=== PATIENT | female | born 1945 | race Hispanic/Latino ===

== ENCOUNTER 2017-05-06 16:44 | Inpatient (IN) | payer MEDICARE ==
[2017-05-06 17:11] LABS: #Lymphocytes 1.3 thou/uL (1.20-3.40); #Monocytes 0.4 thou/uL (0.11-0.59); #Neutrophils 6.7 thou/uL (1.40-6.50); %Basophils 0.4 % (0.0-1.0); %Eosinophils 0.4 % (0.0-10.0); %Lymphocytes 15.5 % (21.0-51.0); %Monocytes 4.4 % (0.0-10.0); Hematocrit 42.8 % (36.0-47.0); Mean Platelet Volume 9.6 fL (7.4-10.4); Red Blood Cell (RBC) Count 4.42 mill/uL (4.20-5.40); White Blood Cell (WBC) Count 8.4 thou/uL (4.8-10.8)
[2017-05-06 17:32] LABS: ALT (SGPT) 38 U/L (8-55); AST (SGOT) 59 U/L (5-34); Alkaline Phosphatase 152 U/L (40-150); Anion Gap 15 mmol/L (10-20); BUN (Urea Nitrogen) 15 mg/dL (9.8-20.1); Bilirubin, Total 0.7 mg/dL (0.2-1.2); Calc. Creatinine Clearance 0 mL/min (70-130); Calcium 9.7 mg/dL (7.8-10.44); Carbon Dioxide 23 mmol/L (23-31); Chloride 105 mmol/L (98-107); Estimated GFR-MDRD 73; Globulin 3.4 g/dL (2.4-3.5); Lipase 311 U/L (8-78); Protein, Total 7.7 g/dL (6.0-8.3)
[2017-05-06] MEDS ORDERED: Ondansetron HCl/PF 4 MG/2 ML Vial ONE (17:39)
[2017-05-06 17:40] LABS: Troponin I Less than 0.010 ng/mL (< 0.028)
[2017-05-06 18:41] LABS: Bilirubin Negative (Negative); Blood, Urine Negative (Negative); Glucose, Urine (Dipstick) Negative (Negative); Ketone, Urine 40 mg/dL (Negative); Nitrite Negative (Negative); Protein, Urine (Dipstick) Negative (Neg-Trace)
--- NOTE | 2017-05-06 19:15 | ULT ---
EXAM: GALLBLADDER ULTRASOUND 05/06/17 HISTORY: Nausea, vomiting. Elevated LFTs. COMPARISON: None. TECHNIQUE: Utilizing a multihertz transducer, sonographic imaging of the right upper quadrant is performed in t he longitudinal and transverse plane. FINDINGS: There is heterogeneous echotexture of the liver which may be due to hepatic steatosis or hepatocellu lar disease. Subsequent evaluation for hepatic masses and intrahepatic biliary dilatation is limited . Right hepatic lobe measures 12 cm. Pancreas is poorly defined due to bowel gas. Limited evaluation of the IVC and aorta. Main portal ve in is patent. Appropriate directional flow. Common bile duct is prominent measuring 1.3 cm. No sonographic evidence of cholelithiasis, gallbladder wall thickening, or pericholecystic fluid. Qu estionable sludge. Negative Howe's sign. Right kidney has a normal cortical echotexture. No hydronephrosis. Right kidney measures 4.8 x 9.7 x 5.1 cm. IMPRESSION: 1. Heterogeneous echotexture of the liver. Correlate for hepatic steatosis or hepatocellular di sease. 2. No sonographic evidence of cholecystitis. There may be a small amount of sludge within the l umen of the gallbladder. 3. Markedly distended common bile duct. Possibly due to choledocholithiasis is raised. ERCP is recommended. POS: HEIDI
[2017-05-06] MEDS ORDERED: Acetaminophen 650 MG Suppository PR PRN (20:03)
[2017-05-06] MEDS ORDERED: Acetaminophen 325 MG TAB PO PRN (20:03)
[2017-05-06] MEDS ORDERED: Bisacodyl 5 MG TAB PO PRN (20:03)
[2017-05-06] MEDS ORDERED: Ampicillin/Sulbactam 3 GM in Sodium Chloride 0.9% 100 ML IVPB SCH (20:15)
[2017-05-06] MEDS ORDERED: HumaLOG 300 UNITS/3 ML VIAL SC PRN (20:16)
[2017-05-06] MEDS ORDERED: Dextrose 5% in Water 1,000 ML IV PRN (20:16)
[2017-05-06] MEDS ORDERED: Dextrose 50% Abboject 50 ML SYRINGE SLOW IVP PRN (20:16)
[2017-05-06] MEDS: Ampicillin/Sulbactam 3 GM, Syringe 1.6 ML in Sterile Water 6.4 ML SLOW IVP SCH (20:45)
--- NOTE | 2017-05-06 20:49 | HP ---
PRIMARY CARE PHYSICIAN: Dr. Meggan Lopez. CHIEF COMPLAINT: Vomiting. HISTORY OF PRESENT ILLNESS: Ms. Montelongo is a pleasant 71-year-old lady who was seen at [facility] on 05/06/2017. She was doing well until yesterday. Yesterday, she had a dental procedure. She was started on an a ntibiotic as well as pain medication. She started taking those medications yesterday. Today mornin g, she started vomiting. She reports having nausea and vomiting 4 times. Nausea resolved after she came to the emergency room and received the medication. She denies any blood in the vomitus. She denies any abdominal pain. She denies any fevers or chills. She denies any chest pain or shortness of breath. REVIEW OF SYSTEMS: The following complete review of systems was negative, unless otherwise mentione d in the HPI or below: Constitutional: Weight loss or gain, sense of well-being, ability to conduct usual activities, exer cise tolerance. Skin/Breast: Rash, itching, changes in hair growth or loss, nail changes, breast lumps, tenderness, swelling, nipple discharge. Eyes: Vision, double vision, tearing, blind spots, pain. ENT/Mouth: Headaches (location, time of onset, duration, precipitating factors), vertigo, lighthead edness, injury. Vision, double vision, tearing, blind spots, pain, nose bleeding, colds, obstruction , discharge, dental difficulties, gingival bleeding, dentures, neck stiffness, pain, tenderness, mas ses in thyroid or other areas. Cardiovascular: Precordial pain, substernal distress, palpitations, syncope, dyspnea on exertion, o rthopnea, nocturnal paroxysmal dyspnea, edema, cyanosis, hypertension, heart murmurs, varicosities, phlebitis, claudication. Respiratory: Pain, shortness of breath, wheezing, stridor, cough, hemoptysis, fever or night sweats . Gastrointestinal: Poor appetite, dysphagia, indigestion, abdominal pain, heartburn, eructation, thu sea, vomiting, hematemesis, jaundice, constipation, or diarrhea, abnormal stools (tommy-colored, nicolle y, bloody, greasy, foul smelling), flatulence, hemorrhoids, recent changes in bowel habits. Genitourinary: Urgency, frequency, dysuria, nocturia, hematuria, polyuria, oliguria, unusual (or ch nasim in) color of urine, stones, hesitancy, change in size of stream, dribbling, acute retention or incontinence, libido, potency. Musculoskeletal: Pain, swelling, redness or heat of muscles or joints, limitation, of motion, muscu lar weakness, atrophy, cramps. Neurologic/Psychiatric: Convulsions, paralyses, tremor, incoordination, paresthesias, difficulties with memory of speech, sensory or motor disturbances, or muscular coordination (ataxia, tremor), emo tional problems, anxiety, depression, previous psychiatric care, unusual perceptions, hallucinations . Allergy/Immunologic: Skin rash, anemia, bleeding tendency, polydipsia, polyuria, intolerance to hea t or cold. PAST MEDICAL HISTORY: Significant for diabetes mellitus, dyslipidemia and hypertension. PAST SURGICAL HISTORY: Significant for oophorectomy, hysterectomy and brain aneurysm surgery. SOCIAL HISTORY: Patient denies tobacco use, alcohol use or recreational drug use. FAMILY HISTORY: No family history of premature coronary artery disease. ALLERGIES: PLAVIX, CODEINE, DILANTIN, GABAPENTIN and NEURONTIN. CURRENT MEDICATIONS: Include metformin 500 mg 2 times a day, Zocor 10 mg daily, acetaminophen/codei ne every 6 hours as needed, aspirin 81 mg daily, Beepen-VK 250 mg, frequency unknown. CODE STATUS: I discussed her CODE STATUS. She is FULL CODE. PHYSICAL EXAMINATION: GENERAL: Ms. Montelongo is awake and alert, not in acute distress. VITAL SIGNS: Blood pressure is 157/94, pulse is 85. She is breathing at rate of 18 and saturating 97% on room air. She is afebrile. EYES: No conjunctival pallor, no scleral icterus. ENT: Moist mucosal membranes. No oropharyngeal erythema or exudates. NECK: Supple, nontender, normal range of movement. Trachea is midline. RESPIRATORY: Accessory muscles of breathing are not active. Chest wall movements are symmetric carroll aterally. LUNGS: Clear to auscultation without wheeze, rhonchi or crepitations. CARDIOVASCULAR: Heart S1 and S2 are heard, regular. Peripheral pulses palpable. No carotid bruit, no pericardial rub. ABDOMEN: Soft and nontender. Howe sign negative. No hepatomegaly, no splenomegaly, bowel sounds are heard. NEUROLOGIC: Cranial nerves II-XII are intact. Deep tendon reflexes 2+. SKIN: No rashes or subcutaneous nodules. MUSCULOSKELETAL: Power is 5/5 in all 4 extremities. Normal range of movement at all major extremit y joints. SKIN: No rashes or subcutaneous nodules. LYMPHATIC: No cervical lymphadenopathy. PSYCHIATRIC: Normal mood, normal affect. Patient is oriented to person, place and time. DATABASE: Ms. Montelongo's labs and investigations were reviewed. She had an electrocardiogram, which showed normal sinus rhythm, no ST changes to suggest an acute coronary syndrome. She also had abdom inal ultrasound, which showed markedly distended common bile duct, possibly due to choledocholithias is. She had hydrogenous echotexture of the liver. There was no sonographic evidence of cholecystit is. She may have a small amount of sludge within the lumen of the gallbladder. LABORATORY INVESTIGATION: Show unremarkable CBC, normal electrolytes, normal creatinine, normal tot al bilirubin, elevated AST of 59, elevated alkaline phosphatase of 152, elevated lipase of 311 and n ormal troponin I. ALT is normal. Urinalysis shows ketones, but is otherwise unremarkable. ASSESSMENT AND PLAN: Ms. Montelongo is a pleasant 71-year-old lady who was seen at [facility] on 05/06/2017. Her problem list includes: 1. Nausea and vomiting: Most likely secondary to choledocholithiasis. 2. Choledocholithiasis: Suspected. Patient will be admitted to the hospital, kept n.p.o. after mi dnight. Gastroenterology Service will be consulted for possible endoscopic retrograde cholangiopanc reatography. 3. Diabetes mellitus: Start Accu-Cheks, insulin sliding scale. 4. Hypertension: Monitor vital signs, titrate antihypertensives as needed. 5. Dental infection. Since she had nausea and vomiting, we will switch her to intravenous antibiot ics in the form of Unasyn 3 grams IV q.6 hours. Once she is able to take oral medications and diet on a steady basis, switch her back to oral antibiotics. Many thanks for allowing me to participate in your patient's care. Please feel free to contact me w ith any questions or concerns. LEVEL OF RISK: Moderate. LEVEL OF COMPLEXITY: Moderate.
[2017-05-06 20:59] VITALS: BMI 33.8
[2017-05-06] MEDS: Sodium Chloride 0.9% 1,000 ML IV SCH (22:19)
[2017-05-07] MEDS: Ampicillin/Sulbactam 3 GM, Syringe 1.6 ML in Sterile Water 6.4 ML SLOW IVP SCH ×4 (02:43→21:35)
[2017-05-07 06:04] LABS: #Eosinphils 0.1 thou/uL (0.0-0.7); #Lymphocytes 1.6 thou/uL (1.20-3.40); #Monocytes 0.4 thou/uL (0.11-0.59); #Neutrophils 4.6 thou/uL (1.40-6.50); %Basophils 0.5 % (0.0-1.0); %Lymphocytes 23.7 % (21.0-51.0); %Monocytes 5.9 % (0.0-10.0); Hematocrit 36.5 % (36.0-47.0); Mean Platelet Volume 9.4 fL (7.4-10.4); Red Blood Cell (RBC) Count 3.76 mill/uL (4.20-5.40); White Blood Cell (WBC) Count 6.7 thou/uL (4.8-10.8)
[2017-05-07 06:36] LABS: ALT (SGPT) 25 U/L (8-55); AST (SGOT) 33 U/L (5-34); Alkaline Phosphatase 122 U/L (40-150); Anion Gap 14 mmol/L (10-20); BUN (Urea Nitrogen) 12 mg/dL (9.8-20.1); Bilirubin, Direct 0.3 mg/dL (0.1-0.3); Bilirubin, Total 0.6 mg/dL (0.2-1.2); Calc. Creatinine Clearance 102 mL/min (70-130); Calcium 8.7 mg/dL (7.8-10.44); Carbon Dioxide 20 mmol/L (23-31); Chloride 110 mmol/L (98-107); Estimated GFR-MDRD 87; Lipase 104 U/L (8-78); Protein, Total 6.3 g/dL (6.0-8.3)
[2017-05-07] MEDS ORDERED: Sodium Chloride 0.65% Nasal 44 ML BOT EA NARE PRN (09:02)
[2017-05-07] MEDS ORDERED: hydrALAZINE 20 MG/ML VIAL SLOW IVP PRN (09:02)
[2017-05-07] MEDS ORDERED: Loperamide HCl 2 MG CAP PO PRN (09:02)
[2017-05-07] MEDS ORDERED: Eucerin (Mineral Oil/Petrolatum,White) 30 gm Jar TOP PRN (09:02)
[2017-05-07] MEDS ORDERED: Diabetic Tussin 200 MG/10 ML UDCUP PO PRN (09:02)
[2017-05-07] MEDS ORDERED: Loratadine 10 MG TAB PO PRN (09:02)
[2017-05-07] MEDS ORDERED: Ondansetron ODT 4 MG TAB PO PRN (09:02)
[2017-05-07] MEDS ORDERED: Ondansetron HCl/PF 4 MG/2 ML Vial IVP PRN (09:02)
[2017-05-07] MEDS ORDERED: Zolpidem Tartrate 5 MG TAB PO PRN (09:02)
[2017-05-07] MEDS ORDERED: Milk Of Magnesia 30 ML UDCUP PO PRN (09:02)
[2017-05-07] MEDS ORDERED: Mag-Al 1200 mg/1200 mg/30 ML UDCUP PO PRN (09:02)
[2017-05-07] MEDS: Sodium Chloride 0.9% 1,000 ML IV SCH ×2 (12:11→15:34)
--- NOTE | 2017-05-07 12:50 | PDOC.PN ---
- Subjective Encounter Start Date: 05/07/17 Encounter Start Time: 08:50 -: old records requested/rev Patient seen and examined. No new complaints. No overnight events, no ruq pain - Objective Resuscitation Status: Resuscitation Status FULL:Full Resuscitation MAR Reviewed: Yes Vital Signs & Weight: Vital Signs (12 hours) Temp Pulse Resp BP BP Pulse Ox 05/07/17 11:16 98.3 F 73 18 126/63 94 L 05/07/17 08:00 98.7 F 72 18 98 05/07/17 07:43 98.7 F 72 18 113/69 98 05/07/17 04:00 98.6 F 73 16 110/52 L 97 Weight Weight 185 lb Result Diagrams: 05/07/17 05:07 05/07/17 05:07 Additional Labs: Accuchecks 05/07/17 05/07/17 11:16 04:58 POC Glucose 96 92 Radiology Reviewed by me: Yes (us abdomen) Phys Exam - Physical Examination Constitutional: NAD HEENT: PERRLA, moist MMs, sclera anicteric Neck: no JVD, supple Respiratory: no wheezing, no rales, no rhonchi Cardiovascular: RRR, no significant murmur, no rub Gastrointestinal: soft, non-tender, no distention, positive bowel sounds Musculoskeletal: no edema, pulses present Neurological: non-focal, normal sensation, moves all 4 limbs Psychiatric: normal affect, A&O x 3 Skin: no rash, normal turgor Dx/Plan (1) Abnormal LFTs Code(s): R79.89 - OTHER SPECIFIED ABNORMAL FINDINGS OF BLOOD CHEMISTRY Status : Acute (2) Dental infection Code(s): K04.7 - PERIAPICAL ABSCESS WITHOUT SINUS Status: Acute (3) Dilated bile duct Code(s): K83.8 - OTHER SPECIFIED DISEASES OF BILIARY TRACT Status: Acute (4) Nausea & vomiting Code(s): R11.2 - NAUSEA WITH VOMITING, UNSPECIFIED Status: Resolved (5) Diabetes type 2, controlled Code(s): E11.9 - TYPE 2 DIABETES MELLITUS WITHOUT COMPLICATIONS Status: Chronic (6) Dyslipidemia Code(s): E78.5 - HYPERLIPIDEMIA, UNSPECIFIED Status: Chronic (7) Hypertension Code(s): I10 - ESSENTIAL (PRIMARY) HYPERTENSION Status: Chronic (8) Obesity (BMI 30.0-34.9) Code(s): E66.9 - OBESITY, UNSPECIFIED Status: Chronic (9) Choledocholithiasis Code(s): K80.50 - CALCULUS OF BILE DUCT W/O CHOLANGITIS OR CHOLECYST W/O OBST Status: Suspected - Plan cont current plan of care, plan discussed w/ family, continue antibiotics * continue unasyn * GI consulted * may need MRCP or ERCP * medication reviewed as below * symptomatic treatment * discussed with family * continue IVF * repeat labs tomorrow. * selected home medication reconciled Review of Systems - Review of Systems ENT: negative: Ear Pain, Ear Discharge, Nose Pain, Nose Discharge, Nose Congestion, Mouth Pain, Mouth Swelling, Throat Pain, Throat Swelling, Other Respiratory: negative: Cough, Dry, Shortness of Breath, Hemoptysis, SOB with Excertion, Pleuritic Pain, Sputum, Wheezing Cardiovascular: negative: Chest Pain, Palpitations, Orthopnea, Paroxysmal Noc. Dyspnea, Edema, Light Headedness, Other Gastrointestinal: negative: Nausea, Vomiting, Abdominal Pain, Diarrhea, Constipation, Melena, Hematochezia, Other Genitourinary: negative: Dysuria, Frequency, Incontinence, Hematuria, Retention , Other Musculoskeletal: negative: Neck Pain, Shoulder Pain, Arm Pain, Back Pain, Hand Pain, Leg Pain, Foot Pain, Other Skin: negative: Rash, Lesions, Aries, Bruising, Other - Medications/Allergies Allergies/Adverse Reactions: Allergies Allergy/AdvReac Type Severity Reaction Status Date / Time clopidogrel [From Plavix] Allergy Verified 05/06/17 20:00 codeine Allergy Verified 05/06/17 20:00 gabapentin [From Neurontin] Allergy Verified 05/06/17 20:00 phenytoin [From Dilantin] Allergy Verified 05/06/17 20:00 Medications: Current Medications Acetaminophen (Tylenol) 650 mg PO Q4H PRN PRN Reason: Headache/Fever or Pain Al Hydroxide/Mg Hydroxide (Maalox) 15 ml PO Q4H PRN PRN Reason: Heartburn or Indigestion Atorvastatin Calcium (Lipitor) 20 mg PO HS BRITTA Bisacodyl (Dulcolax) 10 mg PO DAILYPRN PRN PRN Reason: Constipation Dextrose/Water (Dextrose 50%) 25 gm SLOW IVP PRN PRN PRN Reason: Hypoglycemia Famotidine (Pepcid) 20 mg SLOW IVP Q12HR BRITTA Glucagon (Glucagon) 1 mg IM PRN PRN PRN Reason: Hypoglycemia Guaifenesin (Robitussin Sf) 200 mg PO Q4H PRN PRN Reason: Cough Hydralazine HCl (Apresoline) 10 mg SLOW IVP Q4H PRN PRN Reason: Systolic BP > 180 Dextrose/Water (D5w) 1,000 mls @ 0 mls/hr IV .Q0M PRN; As Directed PRN Reason: Hypoglycemia Sodium Chloride (Normal Saline 0.9%) 1,000 mls @ 70 mls/hr IV .[id number] [facility] Last Admin: 05/07/17 12:11 Dose: Not Given Ampicillin Sodium/Sulbactam Sodium 3 gm/ Syringe 1.6 ml/Sterile Water 8 mls @ 32 mls/hr SLOW IVP 0300,0900,1500,2100 [facility] Last Admin: 05/07/17 09:39 Dose: 8 mls Insulin Human Lispro (Humalog) 0 units SC .MILD SLIDING SCALE PRN PRN Reason: Mild Correctional Scale Loperamide HCl (Imodium) 2 mg PO PRN PRN PRN Reason: Diarrhea/Loose Stools Loratadine (Claritin) 10 mg PO DAILYPRN PRN PRN Reason: Sinus Symptoms Magnesium Hydroxide (Milk Of Magnesium) 30 ml PO DAILYPRN PRN PRN Reason: Constipation Metformin HCl (Glucophage) 500 mg PO QPM-WM [facility] Mineral Oil/White Petrolatum (Eucerin Cream) 0 gm TOP BIDPRN PRN PRN Reason: Dry Skin Ondansetron HCl (Zofran Odt) 4 mg PO Q6H PRN PRN Reason: Nausea/Vomiting Ondansetron HCl (Zofran) 4 mg IVP Q6H PRN PRN Reason: Nausea/Vomiting Sodium Chloride ([place] Nasal [place] 0.65%) 0 ml EA NARE QIDPRN PRN PRN Reason: Nasal Congestion Zolpidem Tartrate (Ambien) 5 mg PO HSPRN PRN PRN Reason: Insomnia
[2017-05-07] MEDS: Dextrose 5 % And 0.9 % NaCl 1,000 ML IV SCH (17:10)
[2017-05-07] MEDS: metFORMIN 500 MG TAB PO SCH (17:10)
[2017-05-07] MEDS: Atorvastatin Calcium 20 MG TAB PO SCH (21:14)
[2017-05-07] MEDS: Famotidine/PF 20 mg/2ml Vial SLOW IVP SCH (21:15)
--- NOTE | 2017-05-07 23:14 | CON ---
DATE OF CONSULTATION: 05/07/2017 REASON FOR CONSULTATION: Questionable choledocholithiasis. HISTORY OF PRESENT ILLNESS: Ms. Montelongo is a pleasant 71-year-old female who came into the hospital yesterday because of refractory nausea and vomiting. Apparently, she has not had any stomach proble ms and had been in good health until she went to the dentist on Monday for a tooth that was botherin g her. After her procedure there, she was started on penicillin as well as a pain medicine with stephen jimenez. She started taking that medication on Monday evening and slept for most of the night but woke up on Monday with vomiting. She was really not waking up very well for the day and vomited about 4 or 5 times. Ultimately by about 5 in the evening, she was brought to the emergency room per katie hickey. She denies any abdominal pain. She denies any hematemesis. Her only discomfort was associated with the vomitus which was bright green in color. She had no fever or chills. No sick contacts an d she has not had any bouts like this in the past. She specifically denies any alcohol use. She denies any history of intermittent abdominal pain afte r meals. She denies weight loss, dysphagia, odynophagia, melena, hematochezia, or hematemesis. Her e in the emergency room, she had a very mild elevation of lipase and mild LFT elevation and then she had an ultrasound, the report of which is somewhat confusing. There is some heterogeneous echotexture which may be due to hepatic steatosis. The pancreas was poo rly defined. The common bile duct was prominent at 1.3 cm. There is no cholelithiasis, gallbladder wall thickening, pericholecystic fluid, or gallbladder dilatation. The radiologist stated that the re was marked distention of the common bile duct, possibly due to choledocholithiasis and an ERCP wa s recommended. The patient notes that shortly after coming to the emergency room, she felt better. She has had no further pain, no vomiting. She wants to eat and go home. She did not have any history of pancreati tis in the past. PAST MEDICAL HISTORY: Diabetes, dyslipidemia, hypertension. PAST SURGICAL HISTORY: Oophorectomy, bilateral hysterectomy, surgery, and some orthopedic stephon rolan. SOCIAL HISTORY: Negative for alcohol, drugs, or tobacco. FAMILY HISTORY: Negative for history of GI tract malignancy. ALLERGIES: PLAVIX, CODEINE, DILANTIN, GABAPENTIN, NEURONTIN. HOME MEDICATIONS: Metformin, Zocor, Tylenol with Codeine, and penicillin VK. PRESENT MEDICATIONS: Here, Tylenol p.r.n., Maalox p.r.n., atorvastatin, bisacodyl, Pepcid, Apresoli ne, Humalog, Imodium, Milk of Magnesia, normal saline at 70 an hour. PHYSICAL EXAMINATION: GENERAL: The patient is resting comfortably in bed. She is in no distress. She is tolerating [place] rs. Her daughter is at the bedside translating for her. VITAL SIGNS: Temperature is 98.3, she has been afebrile overnight, pulse is 73, her heart rate has been in the 70s overnight, blood pressure 126/63. LUNGS: Clear. HEART: Regular rhythm. ABDOMEN: Soft and nontender without rebound or guarding. There is no palpable hepatosplenomegaly. Bowel sounds are positive. LABORATORY AND X-RAY FINDINGS: White count 6.7, hemoglobin 12, platelet count 145. Sodium 140, pot assium 3.8, BUN and creatinine are 12 and 0.6, bicarbonate 20, anion gap is 10. Liver function test s were normal. Lipase is 104. On admission, her AST is 59, ALT is 38, alkaline phosphatase 152, gl ucose 139, lipase is 311. ASSESSMENT: 1. This is a patient who took some Tylenol and hydrocodone and then began having vomiting. She has had a history of allergies to codeine in the past, although she does not recall if they were. She is better now. This was likely a reaction to codeine. 2. Mild elevation of lipase and LFTs on admission, which has now resolved. She had an ultrasound t hat showed questionable common bile duct dilatation, although no stones in the gallbladder. It is p ossible that she had choledocholithiasis and may have passed a stone, but situationally, this seems to be a codeine reaction. RECOMMENDATIONS: MRCP. If this is normal, she can eat and go home. If it is not normal, she is go ing to have an ERCP tomorrow.
[2017-05-08] MEDS: Dextrose 5 % And 0.9 % NaCl 1,000 ML IV SCH ×3 (02:57→23:30)
[2017-05-08] MEDS: Ampicillin/Sulbactam 3 GM, Syringe 1.6 ML in Sterile Water 6.4 ML SLOW IVP SCH ×5 (02:58→22:52)
[2017-05-08 05:07] LABS: #Basophils 0.1 thou/uL (0.0-0.2); #Eosinphils 0.2 thou/uL (0.0-0.7); #Lymphocytes 1.7 thou/uL (1.20-3.40); #Monocytes 0.5 thou/uL (0.11-0.59); #Neutrophils 2.5 thou/uL (1.40-6.50); %Basophils 1.4 % (0.0-1.0); %Eosinophils 3.6 % (0.0-10.0); %Lymphocytes 34.6 % (21.0-51.0); %Monocytes 9.4 % (0.0-10.0); Red Blood Cell (RBC) Count 3.74 mill/uL (4.20-5.40); White Blood Cell (WBC) Count 4.9 thou/uL (4.8-10.8)
[2017-05-08 05:29] LABS: ALT (SGPT) 19 U/L (8-55); AST (SGOT) 26 U/L (5-34); Alkaline Phosphatase 113 U/L (40-150); Anion Gap 11 mmol/L (10-20); BUN (Urea Nitrogen) 10 mg/dL (9.8-20.1); Bilirubin, Total 0.4 mg/dL (0.2-1.2); Calc. Creatinine Clearance 102 mL/min (70-130); Calcium 8.4 mg/dL (7.8-10.44); Carbon Dioxide 20 mmol/L (23-31); Chloride 112 mmol/L (98-107); Estimated GFR-MDRD 87; Globulin 2.7 g/dL (2.4-3.5)
[2017-05-08] MEDS: Famotidine/PF 20 mg/2ml Vial SLOW IVP SCH ×2 (07:41→22:17)
--- NOTE | 2017-05-08 11:34 | PRG ---
DATE OF SERVICE: 05/08/2017 SUBJECTIVE: Ms. Montelongo is without complaints. She wants to go home. PHYSICAL EXAMINATION: VITAL SIGNS: Temperature is 98, pulse 70, blood pressure 161/77. ABDOMEN: Abdomen is nontender. LABORATORY STUDIES: CBC is normal. Liver function tests normal. ASSESSMENT: The patient came in with abdominal pain and mildly elevated lipase and LFTs which has n ow resolved. This all started after taking codeine for a dental issue. She states in retrospect, s he has been allergic to in the past. All symptoms resolved after coming here to the emergency room; however, she did have a questionable dilated bile duct and with the mildly elevated LFTs the radiol ogist recommended an ERCP. There were no gallstones in the gallbladder. Yesterday I recommended MR VINCENT as this is a low likelihood that she has common bile duct stones without having any gallbladder s tones. The MRCP was supposed to be done yesterday, but apparently that could not happen and she is just waiting for it now. If MRCP is negative, she can go home. If she has a filling defect in the MRCP would then consider ERCP tomorrow. The nurses are going to call me the results of the MRCP lat er today.
--- NOTE | 2017-05-08 13:39 | PDOC.PN ---
- Subjective Encounter Start Date: 05/08/17 Encounter Start Time: 08:50 Patient seen and examined. No new complaints. No overnight events - Objective Resuscitation Status: Resuscitation Status FULL:Full Resuscitation MAR Reviewed: Yes Vital Signs & Weight: Vital Signs (12 hours) Temp Pulse Resp BP Pulse Ox 05/08/17 08:00 98.1 F 70 16 05/08/17 07:33 98.1 F 70 16 161/77 H 98 05/08/17 04:00 97.7 F 75 18 138/77 99 Weight Weight 185 lb I&O: 05/07/17 05/08/17 05/09/17 06:59 06:59 06:59 Intake Total 1793 Balance 1793 Result Diagrams: 05/08/17 04:39 05/08/17 04:39 Additional Labs: Accuchecks 05/08/17 05/08/17 05/07/17 12:05 05:51 21:14 POC Glucose 103 125 H 109 05/07/17 16:38 POC Glucose 77 Phys Exam - Physical Examination Constitutional: NAD HEENT: PERRLA, moist MMs, sclera anicteric Neck: no JVD, supple Respiratory: no wheezing, no rales, no rhonchi Cardiovascular: RRR, no significant murmur, no rub Gastrointestinal: soft, non-tender, no distention, positive bowel sounds Musculoskeletal: no edema, pulses present Neurological: non-focal, normal sensation, moves all 4 limbs Psychiatric: normal affect, A&O x 3 Skin: no rash, normal turgor Dx/Plan (1) Abnormal LFTs Code(s): R79.89 - OTHER SPECIFIED ABNORMAL FINDINGS OF BLOOD CHEMISTRY Status : Acute (2) Dental infection Code(s): K04.7 - PERIAPICAL ABSCESS WITHOUT SINUS Status: Acute (3) Dilated bile duct Code(s): K83.8 - OTHER SPECIFIED DISEASES OF BILIARY TRACT Status: Acute (4) Nausea & vomiting Code(s): R11.2 - NAUSEA WITH VOMITING, UNSPECIFIED Status: Resolved (5) Diabetes type 2, controlled Code(s): E11.9 - TYPE 2 DIABETES MELLITUS WITHOUT COMPLICATIONS Status: Chronic (6) Dyslipidemia Code(s): E78.5 - HYPERLIPIDEMIA, UNSPECIFIED Status: Chronic (7) Hypertension Code(s): I10 - ESSENTIAL (PRIMARY) HYPERTENSION Status: Chronic (8) Obesity (BMI 30.0-34.9) Code(s): E66.9 - OBESITY, UNSPECIFIED Status: Chronic (9) Choledocholithiasis Code(s): K80.50 - CALCULUS OF BILE DUCT W/O CHOLANGITIS OR CHOLECYST W/O OBST Status: Suspected - Plan cont current plan of care * medication reviewed as below * symptomatic treatment * today MRCP * discussed with dr montemayor * stable and improving. Review of Systems - Review of Systems ENT: negative: Ear Pain, Ear Discharge, Nose Pain, Nose Discharge, Nose Congestion, Mouth Pain, Mouth Swelling, Throat Pain, Throat Swelling, Other Respiratory: negative: Cough, Dry, Shortness of Breath, Hemoptysis, SOB with Excertion, Pleuritic Pain, Sputum, Wheezing Cardiovascular: negative: Chest Pain, Palpitations, Orthopnea, Paroxysmal Noc. Dyspnea, Edema, Light Headedness, Other Gastrointestinal: negative: Nausea, Vomiting, Abdominal Pain, Diarrhea, Constipation, Melena, Hematochezia, Other Genitourinary: negative: Dysuria, Frequency, Incontinence, Hematuria, Retention , Other Musculoskeletal: negative: Neck Pain, Shoulder Pain, Arm Pain, Back Pain, Hand Pain, Leg Pain, Foot Pain, Other - Medications/Allergies Allergies/Adverse Reactions: Allergies Allergy/AdvReac Type Severity Reaction Status Date / Time clopidogrel [From Plavix] Allergy Verified 05/06/17 20:00 codeine Allergy Verified 05/06/17 20:00 gabapentin [From Neurontin] Allergy Verified 05/06/17 20:00 phenytoin [From Dilantin] Allergy Verified 05/06/17 20:00 Medications: Current Medications Acetaminophen (Tylenol) 650 mg PO Q4H PRN PRN Reason: Headache/Fever or Pain Al Hydroxide/Mg Hydroxide (Maalox) 15 ml PO Q4H PRN PRN Reason: Heartburn or Indigestion Atorvastatin Calcium (Lipitor) 20 mg PO HS [facility] Last Admin: 05/07/17 21:14 Dose: Not Given Bisacodyl (Dulcolax) 10 mg PO DAILYPRN PRN PRN Reason: Constipation Dextrose/Water (Dextrose 50%) 25 gm SLOW IVP PRN PRN PRN Reason: Hypoglycemia Famotidine (Pepcid) 20 mg SLOW IVP Q12HR [facility] Last Admin: 05/08/17 07:41 Dose: 20 mg Glucagon (Glucagon) 1 mg IM PRN PRN PRN Reason: Hypoglycemia Guaifenesin (Robitussin Sf) 200 mg PO Q4H PRN PRN Reason: Cough Hydralazine HCl (Apresoline) 10 mg SLOW IVP Q4H PRN PRN Reason: Systolic BP > 180 Dextrose/Water (D5w) 1,000 mls @ 0 mls/hr IV .Q0M PRN; As Directed PRN Reason: Hypoglycemia Ampicillin Sodium/Sulbactam Sodium 3 gm/ Syringe 1.6 ml/Sterile Water 8 mls @ 32 mls/hr SLOW IVP 0300,0900,1500,2100 [facility] Last Admin: 05/08/17 09:21 Dose: 8 mls Dextrose/Sodium Chloride (D5 0.9% Ns) 1,000 mls @ 100 mls/hr IV .Q10H [facility] Last Admin: 05/08/17 11:00 Dose: Not Given Insulin Human Lispro (Humalog) 0 units SC .MILD SLIDING SCALE PRN PRN Reason: Mild Correctional Scale Loperamide HCl (Imodium) 2 mg PO PRN PRN PRN Reason: Diarrhea/Loose Stools Loratadine (Claritin) 10 mg PO DAILYPRN PRN PRN Reason: Sinus Symptoms Magnesium Hydroxide (Milk Of Magnesium) 30 ml PO DAILYPRN PRN PRN Reason: Constipation Metformin HCl (Glucophage) 500 mg PO QPM-WM [facility] Last Admin: 05/07/17 17:10 Dose: Not Given Mineral Oil/White Petrolatum (Eucerin Cream) 0 gm TOP BIDPRN PRN PRN Reason: Dry Skin Ondansetron HCl (Zofran Odt) 4 mg PO Q6H PRN PRN Reason: Nausea/Vomiting Ondansetron HCl (Zofran) 4 mg IVP Q6H PRN PRN Reason: Nausea/Vomiting Sodium Chloride ([place] Nasal [place] 0.65%) 0 ml EA NARE QIDPRN PRN PRN Reason: Nasal Congestion Zolpidem Tartrate (Ambien) 5 mg PO HSPRN PRN PRN Reason: Insomnia
[2017-05-08] MEDS ORDERED: Fentanyl 100 MCG/2 ML VIAL ONE (16:06)
--- NOTE | 2017-05-08 16:07 | PRG ---
DATE OF SERVICE: 05/08/2017. SUBJECTIVE: Ms. Montelongo had MRCP today. This showed a filling defect in the common bile duct. Give n her presentation with vomiting and lipase greater than 3 times upper limit of normal with elevated ALT, ERCP is indicated for choledocholithiasis. I discussed the ERCP with the patient and her daug hter in detail including the risks and benefits. The risks including failed cannulation or pancreat itis flare or bleeding. She knows to watch for evidence of bleeding. A sphincterotomy is performed .
[2017-05-08] MEDS: metFORMIN 500 MG TAB PO SCH (16:09)
--- NOTE | 2017-05-08 16:28 | MRI ---
MRI ABDOMEN WITHOUT CONTRAST MRCP: Date: 05/08/17 HISTORY: 71-year-old female with elevated LFTs and dilated common bile duct on ultrasound of 05/06/17. No gal lstones on the ultrasound. FINDINGS: The liver demonstrates homogeneous signal intensity without signal dropout on ego-cr-ubpab images to suggest fatty infiltration. No intrahepatic biliary ductal dilatation is seen. The common bile duct measures about 1.0 cm in diameter. There is a 5.0 mm filling defect in the mid common duct and a ti ny filling defect in the distal common bile duct, best seen on the HASTE images. No gallstones are i dentified. The spleen, pancreas, and adrenal glands are unremarkable. Bilateral renal cysts are present. No breann e fluid or lymphadenopathy is identified. No evidence of aneurysmal dilatation of the abdominal aort a. There are degenerative changes in the spine. IMPRESSION: 1. Choledocholithiasis with common bile duct dilatation. 2. Bilateral renal cysts. This study was interpreted in consultation with Dr. Liam De, who concurs. POS: [facility]
[2017-05-08] MEDS ORDERED: Indomethacin 50 MG SUPP ONE (16:31)
[2017-05-08] MEDS ORDERED: Iothalamate Meglumine 60% 50 ML VIAL FS ONE (16:34)
[2017-05-08] MEDS ORDERED: Propofol 200 MG/20 ML VIAL ONE (16:38)
[2017-05-08] MEDS ORDERED: Lidocaine 2% MPF 10 ML AMP (For Epidural Use) ONE (16:38)
[2017-05-08] MEDS ORDERED: Promethazine HCl 25 MG/ML VIAL SLOW IVP PRN (18:15)
[2017-05-08] MEDS ORDERED: Promethazine HCl 25 MG/ML VIAL IM PRN (18:15)
[2017-05-08] MEDS ORDERED: Ondansetron HCl/PF 4 MG/2 ML Vial IVP PRN (18:15)
--- NOTE | 2017-05-08 19:49 | RAD ---
ERCP INTRAOPERATIVE FLUOROSCOPY: History: Choledocholithiasis. FINDINGS: Intraoperative fluoroscopy was provided for ERCP as performed by Dr. Larose. Multiple spot fluoroscop ic images show opacification of the dilated common duct. POS: [facility]
[2017-05-08] MEDS ORDERED: Lorazepam 2 MG/ML VIAL SLOW IVP SCH (21:15)
[2017-05-08] MEDS: Atorvastatin Calcium 20 MG TAB PO SCH (22:18)
--- NOTE | 2017-05-08 23:29 | OP ---
DATE OF PROCEDURE: 05/08/2017 PROCEDURE: Endoscopic retrograde cholangiopancreatography with sphincterotomy. PREOPERATIVE DIAGNOSIS: Choledocholithiasis. OPERATIVE NOTE: Informed consent was obtained from the patient. She was sedated with general anest hesia and placed in the prone position. She received indomethacin 100 mg by suppository. The duode noscope was advanced easily to the second portion of the duodenum with ampulla was identified. Ther e was a periampullary diverticulum just proximal to the ampulla. The pancreatic duct was briefly ca nnulated with the guidewire on 3 attempts. The common bile duct was selectively cannulated with the guidewire and then the sphincterotome. Cholangiogram was performed, which revealed dilation of the common bile duct to 12 mm with normal hepatic ducts. There was a possible filling defect in the di stal common bile duct. A sphincterotomy was performed, which extends into the duodenal diverticulum . A 12 mm balloon was then used to sweep the duct and passed through the sphincterotomy without res istance. Occlusion cholangiogram then confirmed the duct to be clear. There was a small amount of sludge and tiny stone fragments swept from the duct, but no large stone present. IMPRESSION: 1. Periampullary diverticulum. There is no bile drainage spontaneously from the ampulla until afte r the sphincterotomy was performed. 2. Common bile duct was dilated to 12 mm by cholangiogram. The hepatic ducts were normal. There w as a possible filling defect noted in the distal common bile duct. 3. Sphincterotomy was performed, which was extended into the duodenal diverticulum. A 12 mm balloo n passed through the sphincterotomy without resistance. 4. Sludge and tiny stone fragments were swept from the duct, but no large focal stone. 5. Occlusion cholangiogram confirmed the duct to be clear. RECOMMENDATIONS: 1. Check liver function tests in the morning. 2. Plan laparoscopic cholecystectomy when able.
[2017-05-09] MEDS: Ampicillin/Sulbactam 3 GM, Syringe 1.6 ML in Sterile Water 6.4 ML SLOW IVP SCH ×4 (05:18→23:24)
[2017-05-09] MEDS: Famotidine/PF 20 mg/2ml Vial SLOW IVP SCH ×2 (07:33→21:50)
[2017-05-09] MEDS: Dextrose 5 % And 0.9 % NaCl 1,000 ML IV SCH ×3 (08:11→23:02)
--- NOTE | 2017-05-09 13:18 | PDOC.PN ---
- Subjective Encounter Start Date: 05/09/17 Encounter Start Time: 09:40 Patient seen and examined. No new complaints. No overnight events - Objective Resuscitation Status: Resuscitation Status FULL:Full Resuscitation MAR Reviewed: Yes Vital Signs & Weight: Vital Signs (12 hours) Temp Pulse Resp BP BP Pulse Ox 05/09/17 12:00 98.2 F 71 16 170/82 H 96 05/09/17 08:00 98.6 F 67 16 128/62 97 05/09/17 06:00 98.5 F 69 16 147/77 H 96 05/09/17 04:00 98.7 F 78 16 155/74 H 96 Weight Weight 185 lb I&O: 05/08/17 05/09/17 05/10/17 06:59 06:59 06:59 Intake Total 1793 Balance 1793 Result Diagrams: 05/08/17 04:39 05/08/17 04:39 Additional Labs: Accuchecks 05/09/17 05/09/17 05/08/17 12:29 04:05 19:03 POC Glucose 114 H 134 H 91 Phys Exam - Physical Examination Constitutional: NAD HEENT: PERRLA, moist MMs, sclera anicteric Neck: no JVD, supple Respiratory: no wheezing, no rales, no rhonchi Cardiovascular: RRR, no significant murmur, no rub Gastrointestinal: soft, non-tender, no distention, positive bowel sounds Musculoskeletal: no edema, pulses present Neurological: non-focal, normal sensation Psychiatric: normal affect, A&O x 3 Skin: no rash, normal turgor Dx/Plan (1) Abnormal LFTs Code(s): R79.89 - OTHER SPECIFIED ABNORMAL FINDINGS OF BLOOD CHEMISTRY Status : Acute (2) Dental infection Code(s): K04.7 - PERIAPICAL ABSCESS WITHOUT SINUS Status: Acute (3) Dilated bile duct Code(s): K83.8 - OTHER SPECIFIED DISEASES OF BILIARY TRACT Status: Acute (4) Nausea & vomiting Code(s): R11.2 - NAUSEA WITH VOMITING, UNSPECIFIED Status: Resolved (5) Diabetes type 2, controlled Code(s): E11.9 - TYPE 2 DIABETES MELLITUS WITHOUT COMPLICATIONS Status: Chronic (6) Dyslipidemia Code(s): E78.5 - HYPERLIPIDEMIA, UNSPECIFIED Status: Chronic (7) Hypertension Code(s): I10 - ESSENTIAL (PRIMARY) HYPERTENSION Status: Chronic (8) Obesity (BMI 30.0-34.9) Code(s): E66.9 - OBESITY, UNSPECIFIED Status: Chronic (9) Choledocholithiasis Code(s): K80.50 - CALCULUS OF BILE DUCT W/O CHOLANGITIS OR CHOLECYST W/O OBST Status: Suspected - Plan cont current plan of care, plan discussed w/ family, continue antibiotics * will consult general surgery for lap choley evaluation * medication reviewed as below * symptomatic treatment * discussed with family * s/p ERCP, doing well. * continue unasyn * start diet if no plan for surgery Review of Systems - Review of Systems ENT: negative: Ear Pain, Ear Discharge, Nose Pain, Nose Discharge, Nose Congestion, Mouth Pain, Mouth Swelling, Throat Pain, Throat Swelling, Other Respiratory: negative: Cough, Dry, Shortness of Breath, Hemoptysis, SOB with Excertion, Pleuritic Pain, Sputum, Wheezing Cardiovascular: negative: Chest Pain, Palpitations, Orthopnea, Paroxysmal Noc. Dyspnea, Edema, Light Headedness, Other Gastrointestinal: negative: Nausea, Vomiting, Abdominal Pain, Diarrhea, Constipation, Melena, Hematochezia, Other Genitourinary: negative: Dysuria, Frequency, Incontinence, Hematuria, Retention , Other Musculoskeletal: negative: Neck Pain, Shoulder Pain, Arm Pain, Back Pain, Hand Pain, Leg Pain, Foot Pain, Other Skin: negative: Rash, Lesions, Aries, Bruising, Other - Medications/Allergies Allergies/Adverse Reactions: Allergies Allergy/AdvReac Type Severity Reaction Status Date / Time clopidogrel [From Plavix] Allergy Verified 05/06/17 20:00 codeine Allergy Verified 05/06/17 20:00 gabapentin [From Neurontin] Allergy Verified 05/06/17 20:00 phenytoin [From Dilantin] Allergy Verified 05/06/17 20:00 Medications: Current Medications Acetaminophen (Tylenol) 650 mg PO Q4H PRN PRN Reason: Headache/Fever or Pain Al Hydroxide/Mg Hydroxide (Maalox) 15 ml PO Q4H PRN PRN Reason: Heartburn or Indigestion Atorvastatin Calcium (Lipitor) 20 mg PO HS [facility] Last Admin: 05/08/17 22:18 Dose: Not Given Bisacodyl (Dulcolax) 10 mg PO DAILYPRN PRN PRN Reason: Constipation Dextrose/Water (Dextrose 50%) 25 gm SLOW IVP PRN PRN PRN Reason: Hypoglycemia Famotidine (Pepcid) 20 mg SLOW IVP Q12HR [facility] Last Admin: 05/09/17 07:33 Dose: 20 mg Glucagon (Glucagon) 1 mg IM PRN PRN PRN Reason: Hypoglycemia Guaifenesin (Robitussin Sf) 200 mg PO Q4H PRN PRN Reason: Cough Hydralazine HCl (Apresoline) 10 mg SLOW IVP Q4H PRN PRN Reason: Systolic BP > 180 Dextrose/Water (D5w) 1,000 mls @ 0 mls/hr IV .Q0M PRN; As Directed PRN Reason: Hypoglycemia Dextrose/Sodium Chloride (D5 0.9% Ns) 1,000 mls @ 100 mls/hr IV .Q10H [facility] Last Admin: 05/09/17 08:11 Dose: 1,000 mls Ampicillin Sodium/Sulbactam Sodium 3 gm/ Syringe 1.6 ml/Sterile Water 8 mls @ 32 mls/hr SLOW IVP 0500,1100,1700,2300 [facility] Last Admin: 05/09/17 10:46 Dose: 8 mls Insulin Human Lispro (Humalog) 0 units SC .MILD SLIDING SCALE PRN PRN Reason: Mild Correctional Scale Loperamide HCl (Imodium) 2 mg PO PRN PRN PRN Reason: Diarrhea/Loose Stools Loratadine (Claritin) 10 mg PO DAILYPRN PRN PRN Reason: Sinus Symptoms Magnesium Hydroxide (Milk Of Magnesium) 30 ml PO DAILYPRN PRN PRN Reason: Constipation Metformin HCl (Glucophage) 500 mg PO QPM-WM [facility] Last Admin: 05/08/17 16:09 Dose: Not Given Mineral Oil/White Petrolatum (Eucerin Cream) 0 gm TOP BIDPRN PRN PRN Reason: Dry Skin Ondansetron HCl (Zofran Odt) 4 mg PO Q6H PRN PRN Reason: Nausea/Vomiting Ondansetron HCl (Zofran) 4 mg IVP Q6H PRN PRN Reason: Nausea/Vomiting Sodium Chloride ([place] Nasal [place] 0.65%) 0 ml EA NARE QIDPRN PRN PRN Reason: Nasal Congestion Zolpidem Tartrate (Ambien) 5 mg PO HSPRN PRN PRN Reason: Insomnia
[2017-05-09] MEDS ORDERED: Bupivacaine/Epinephrine 0.25% 30 ML VIAL ONE (16:09)
[2017-05-09] MEDS ORDERED: Fentanyl 100 MCG/2 ML VIAL ONE (16:26)
[2017-05-09] MEDS ORDERED: Ondansetron HCl/PF 4 MG/2 ML Vial ONE (16:35)
[2017-05-09] MEDS ORDERED: Lidocaine 2% MPF 10 ML AMP (For Epidural Use) ONE (16:35)
[2017-05-09] MEDS ORDERED: Glycopyrrolate 0.2 MG/ML 5 ML SYRINGE ONE (16:35)
[2017-05-09] MEDS ORDERED: Propofol 200 MG/20 ML VIAL ONE (16:35)
--- NOTE | 2017-05-09 18:06 | CON ---
DATE OF CONSULTATION: 05/09/2017 CHIEF COMPLAINT: Gallstone pancreatitis. HISTORY: Ms. Montelongo is a 71-year-old woman who presented to the emergency room with intractable thu sea and vomiting. She had initially attributed this to taking some Tylenol with codeine for a tooth infection, but it would not get better, so she ended up coming to the emergency room. She was foun d to have an elevated lipase as well as a dilated common bile duct with some sludge in the gallbladd er and an MRCP was performed which showed a distal common bile duct stone and she underwent an ERCP with extraction of sludge and some fragments of stone from the distal common bile duct yesterday. She does not have any known history of gallbladder disease or pancreatitis prior to this admission. Currently she is not having any nausea, vomiting, abdominal pain, fevers, or chills. PAST MEDICAL HISTORY: Diabetes, hypertension and hyperlipidemia. PAST SURGICAL HISTORY: Surgery for brain aneurysm and oophorectomy and later hysterectomy and also right shoulder surgery. SOCIAL HISTORY: She does not have any history of alcohol, tobacco or drug use. FAMILY HISTORY: Diabetes, but no other significant problems. ALLERGIES: She reports allergies to PLAVIX, CODEINE, NEURONTIN, DILANTIN, and GABAPENTIN. OUTPATIENT MEDICATIONS: Include metformin, Zocor, aspirin, Beepen-VK and Tylenol #3. REVIEW OF SYSTEMS: Ten system review of systems is negative except per HPI and her tooth infection. PHYSICAL EXAMINATION: VITAL SIGNS: Patient is afebrile, heart rate and O2 sats are normal, blood pressure is mildly eleva priti. HEENT: Unremarkable. NECK: Supple, without lymphadenopathy or thyroid nodules. She does not have any jaundice or icteru s, flushing or toxic appearance. HEART: Regular in its rate and rhythm without murmurs, rubs or gallops. LUNGS: Clear to auscultation bilaterally. ABDOMEN: Soft and nontender. She has minimal tenderness in the epigastric area, but does not have any rigidity, rebound or guarding. No palpable masses or hernias. Healed lower midline incisions. EXTREMITIES: Warm and well perfused without edema. NEUROLOGIC: No focal deficits. PSYCHIATRIC: Alert, oriented, and appropriate. CT MRCP and ultrasound reports are as per HPI. LABORATORY DATA: Show a mildly elevated lipase on admission which came down as well as a mildly ronn vated AST and alkaline phosphatase with normal total bilirubin. ASSESSMENT: Pancreatitis, likely due to gallstones. She has undergone ERCP and stone extraction an d I have recommended that she undergo laparoscopic cholecystectomy to prevent future episodes. The procedure and its inherent risks were discussed with the patient and her family. These include but are not limited to bleeding, infection, risks of anesthesia, damage to nearby structures including b owel, liver and bile duct, need for further procedures, and need for open operation. She understand s and accepts these risks and wishes to proceed. She is on scheduled antibiotics as an inpatient an d is on the OR schedule for later today.
[2017-05-09] MEDS ORDERED: Promethazine HCl 25 MG/ML VIAL SLOW IVP PRN (18:08)
[2017-05-09] MEDS ORDERED: Ondansetron HCl/PF 4 MG/2 ML Vial IVP PRN (18:08)
[2017-05-09] MEDS ORDERED: Promethazine HCl 25 MG/ML VIAL IM PRN (18:08)
[2017-05-09] MEDS: metFORMIN 500 MG TAB PO SCH (18:10)
[2017-05-09] MEDS ORDERED: traMADol HCl 50 MG TAB PO PRN (19:34)
[2017-05-09] MEDS ORDERED: HYDROcodone/Acetaminophen 5/325 mg Tablet PO PRN ×2 (19:36)
[2017-05-09] MEDS: traMADol HCl 50 MG TAB PO PRN (20:24)
--- NOTE | 2017-05-09 21:06 | EKG ---
Test Reason : Blood Pressure : / mmHG Vent. Rate : 061 BPM Atrial Rate : 061 BPM P-R Int : 148 ms QRS Dur : 072 ms QT Int : 462 ms P-R-T Axes : 072 028 045 degrees QTc Int : 465 ms Normal sinus rhythm Normal ECG When compared with ECG of 06-MAY-2017 17:26, (Unconfirmed) No significant change was found Confirmed by ADI DOUGLAS, . SYris (4) on 05/09/2017 9:06:22 PM Referred By: Confirmed By:DR. Veronica JOSHI MD
[2017-05-09] MEDS: Atorvastatin Calcium 20 MG TAB PO SCH (21:49)
[2017-05-10] MEDS: traMADol HCl 50 MG TAB PO PRN (01:48)
[2017-05-10 04:36] LABS: #Lymphocytes 1.1 thou/uL (1.20-3.40); #Monocytes 0.5 thou/uL (0.11-0.59); #Neutrophils 6.7 thou/uL (1.40-6.50); %Basophils 0.1 % (0.0-1.0); %Eosinophils 0.1 % (0.0-10.0); %Lymphocytes 13.7 % (21.0-51.0); %Monocytes 5.8 % (0.0-10.0); Hematocrit 34.8 % (36.0-47.0); Mean Platelet Volume 9.8 fL (7.4-10.4); Red Blood Cell (RBC) Count 3.58 mill/uL (4.20-5.40); White Blood Cell (WBC) Count 8.3 thou/uL (4.8-10.8)
[2017-05-10 04:54] LABS: ALT (SGPT) 45 U/L (8-55); AST (SGOT) 75 U/L (5-34); Alkaline Phosphatase 172 U/L (40-150); Anion Gap 11 mmol/L (10-20); BUN (Urea Nitrogen) Less than 4 mg/dL (9.8-20.1); Bilirubin, Total 0.4 mg/dL (0.2-1.2); Calc. Creatinine Clearance 99 mL/min (70-130); Calcium 7.9 mg/dL (7.8-10.44); Carbon Dioxide 22 mmol/L (23-31); Chloride 111 mmol/L (98-107); Estimated GFR-MDRD 84; Globulin 2.7 g/dL (2.4-3.5); Lipase 225 U/L (8-78); Protein, Total 6.1 g/dL (6.0-8.3)
--- NOTE | 2017-05-10 04:55 | OP ---
PROCEDURE: Laparoscopic cholecystectomy. PREOPERATIVE DIAGNOSIS: Gallstone pancreatitis. POSTOPERATIVE DIAGNOSIS: Gallstone pancreatitis. HISTORY OF PRESENT ILLNESS: Ms. Montelongo is a 71-year-old woman who presented to the hospital with nausea and vomiting. She was found to have an elevated lipase and dilated common bile duct with a distal common bile duct stone on MRCP. She underwent ERCP and stone extraction yesterday and now presents for a laparoscopic cholecystectomy. PROCEDURE IN DETAIL: After informed consent was obtained and appropriate preoperative antibiotics were continued, the patient was taken to the operating room where she was placed in supine position and general endotracheal anesthesia was administered. She was prepped and draped in a standard sterile fashion and local anesthesia was infused to the skin and subcutaneous tissues at the level of the umbilicus. A transverse skin incision was made. The fascia was elevated and a Veress needle placed into the abdominal cavity without difficulty. Opening pressure was less than 5 and carbon dioxide gas easily insufflated to an intra-abdominal pressure of 15, which the patient tolerated well. The Veress needle was withdrawn and a [place] port placed into the abdominal cavity under direct vision without difficulty. The patient was noted to have omental adhesions inferior to the level of the trocar placement, but no bowel adhesions and no adhesions in the vicinity of the trocar. There was no evidence of Veress needle or trocar injury seen. Local anesthesia was infused to the skin and subcutaneous tissues at the epigastric, right upper quadrant, and right lateral abdominal sites. Skin incisions were made and trocars were placed under direct vision of the laparoscope. The patient was noted to have a very floppy liver which was somewhat obscuring the gallbladder anteromedially but the gallbladder itself was without significant adhesions, although distended and thin walled in quality. The fundus of the gallbladder was grasped and retracted superiorly, and the infundibulum grasped and retracted laterally. The serosa was stripped inferiorly; however, during this process with lateral retraction of the gallbladder, the thin walled gallbladder tore free from the liver bed medially avulsing itself from the cystic artery, which began to bleed briskly. This was able to be clamped and controlled, but due to the floppy liver limiting exposure in this area it was very difficult to see the area to safely clip the artery. The decision was made to place an additional trocar so the liver could be retracted medially to expose the area of concern. An additional 5-mm trocar was placed in the right mid abdomen and the camera moved to that position. The umbilical trocar was used to place an additional grasper to retract the floppy lobe of the liver away from the gallbladder; however, even with this, the cystic artery could not clearly be seen due to the infundibulum and the cystic duct obscuring this area ; therefore, the cystic duct was dissected free circumferentially, clearly traced to its insertion in the gallbladder, clipped and divided, following which the infundibulum was able to be retracted laterally and the cystic artery clearly identified and dissected free and clipped with control of bleeding. During this process, the main bleeding from the cystic duct was able to be controlled by leaving up the clamp on it; however, there was ongoing backbleeding from the avulsed cystic artery on the gallbladder, so there was a fair amount of bleeding from that during this process; however, once the clips were placed, all bleeding was definitively controlled. The gallbladder was then dissected free of the gallbladder bed using hook electrocautery. The gallbladder was quite thin walled and friable and tore away from the gallbladder bed, but oozing from the gallbladder bed was able to be controlled with electrocautery. Prior to complete removal of the gallbladder from the gallbladder bed, the area of the cystic duct and artery stumps was examined. The clips were in good position across these and there was no bleeding or leakage of bile. The gallbladder bed was hemostatic and the gallbladder was then removed from the gallbladder bed, placed into an EndoCatch bag and drawn out through the epigastric trocar site. The epigastric trocar was then replaced and the operative sites irrigated to clear. There was no ongoing bleeding and a drain was not felt to be necessary; however, due to the raw liver bed, some additional Surgicel was placed to the gallbladder bed as a precaution. The epigastric trocar was then removed and the fascia closed under direct vision with a 0 Vicryl suture on a GraNee needle with excellent technical result. The right upper quadrant, right lateral, and right mid abdominal trocars were removed and hemostasis verified at these sites. Carbon dioxide gas was allowed to desufflate through the umbilical trocar which was then removed. Estimated blood loss was 200 mL. There were no complications. Specimen is gallbladder and contents. [facility]
[2017-05-10] MEDS: Ampicillin/Sulbactam 3 GM, Syringe 1.6 ML in Sterile Water 6.4 ML SLOW IVP SCH (05:43)
[2017-05-10 05:54] VITALS: TEMP 98.5
--- NOTE | 2017-05-10 06:12 | PDOC.PN ---
- Subjective Encounter Start Date: 05/10/17 Encounter Start Time: 06:09 Patient seen and examined. No new complaints. No overnight events - Objective Resuscitation Status: Resuscitation Status FULL:Full Resuscitation MAR Reviewed: Yes Vital Signs & Weight: Vital Signs (12 hours) Temp Pulse Resp BP BP Pulse Ox 05/10/17 05:53 98.5 F 75 16 146/74 H 93 L 05/10/17 00:57 98.1 F 73 16 151/75 H 94 L 05/09/17 22:57 77 176/81 H 93 L 05/09/17 22:27 73 163/81 H 93 L 05/09/17 21:27 74 163/80 H 94 L 05/09/17 20:50 69 156/73 H 96 05/09/17 20:20 66 152/77 H 96 05/09/17 20:00 97.7 F 77 18 135/63 98 05/09/17 19:50 60 164/75 H 94 L 05/09/17 19:20 98.2 F 69 161/74 H 96 05/09/17 19:15 97.7 F 63 16 135/63 93 L Weight Weight 185 lb I&O: 05/08/17 05/09/17 05/10/17 06:59 06:59 06:59 Intake Total 1793 Balance 1793 Result Diagrams: 05/10/17 03:18 05/10/17 03:18 Additional Labs: Accuchecks 05/10/17 05/09/17 05/09/17 05:30 19:00 12:29 POC Glucose 134 H 115 H 114 H Phys Exam - Physical Examination Constitutional: NAD HEENT: moist MMs, sclera anicteric Neck: no JVD, supple Respiratory: no wheezing, no rales, no rhonchi Cardiovascular: RRR, no significant murmur, no rub Gastrointestinal: soft, non-tender, no distention, positive bowel sounds Musculoskeletal: no edema, pulses present Neurological: non-focal, normal sensation Psychiatric: normal affect, A&O x 3 Skin: no rash, normal turgor Dx/Plan (1) Choledocholithiasis Code(s): K80.50 - CALCULUS OF BILE DUCT W/O CHOLANGITIS OR CHOLECYST W/O OBST Status: Acute (2) Abnormal LFTs Code(s): R79.89 - OTHER SPECIFIED ABNORMAL FINDINGS OF BLOOD CHEMISTRY Status : Acute (3) Dental infection Code(s): K04.7 - PERIAPICAL ABSCESS WITHOUT SINUS Status: Acute (4) Dilated bile duct Code(s): K83.8 - OTHER SPECIFIED DISEASES OF BILIARY TRACT Status: Acute (5) Nausea & vomiting Code(s): R11.2 - NAUSEA WITH VOMITING, UNSPECIFIED Status: Resolved (6) Diabetes type 2, controlled Code(s): E11.9 - TYPE 2 DIABETES MELLITUS WITHOUT COMPLICATIONS Status: Chronic (7) Dyslipidemia Code(s): E78.5 - HYPERLIPIDEMIA, UNSPECIFIED Status: Chronic (8) Hypertension Code(s): I10 - ESSENTIAL (PRIMARY) HYPERTENSION Status: Chronic (9) Obesity (BMI 30.0-34.9) Code(s): E66.9 - OBESITY, UNSPECIFIED Status: Chronic (10) S/P ERCP Code(s): Z98.890 - OTHER SPECIFIED POSTPROCEDURAL STATES Status: Acute (11) S/P laparoscopic cholecystectomy Code(s): Z90.49 - ACQUIRED ABSENCE OF OTHER SPECIFIED PARTS OF DIGESTIVE TRACT Status: Acute - Plan cont current plan of care, continue antibiotics * s/p lap mady * doing well * pain controlled * surgical site clean * advance diet * DC IVF * will consider discharge when surgeon ok * medication reviewed as below * symptomatic treatment * ambulate as tolerated. Review of Systems - Review of Systems ENT: negative: Ear Pain, Ear Discharge, Nose Pain, Nose Discharge, Nose Congestion, Mouth Pain, Mouth Swelling, Throat Pain, Throat Swelling, Other Respiratory: negative: Cough, Dry, Shortness of Breath, Hemoptysis, SOB with Excertion, Pleuritic Pain, Sputum, Wheezing Cardiovascular: negative: Chest Pain, Palpitations, Orthopnea, Paroxysmal Noc. Dyspnea, Edema, Light Headedness, Other Gastrointestinal: negative: Nausea, Vomiting, Abdominal Pain, Diarrhea, Constipation, Melena, Hematochezia, Other Genitourinary: negative: Dysuria, Frequency, Incontinence, Hematuria, Retention , Other Musculoskeletal: negative: Neck Pain, Shoulder Pain, Arm Pain, Back Pain, Hand Pain, Leg Pain, Foot Pain, Other - Medications/Allergies Allergies/Adverse Reactions: Allergies Allergy/AdvReac Type Severity Reaction Status Date / Time clopidogrel [From Plavix] Allergy Verified 05/06/17 20:00 codeine Allergy Verified 05/06/17 20:00 gabapentin [From Neurontin] Allergy Verified 05/06/17 20:00 phenytoin [From Dilantin] Allergy Verified 05/06/17 20:00 Medications: Current Medications Acetaminophen (Tylenol) 650 mg PO Q4H PRN PRN Reason: Headache/Fever or Pain Hydrocodone Bitart/Acetaminophen ([place] 5/325) 1 tab PO Q4H PRN PRN Reason: PAIN SCALE 1-5 Hydrocodone Bitart/Acetaminophen ([place] 5/325) 2 tab PO Q4H PRN PRN Reason: PAIN SCALE 6-10 Al Hydroxide/Mg Hydroxide (Maalox) 15 ml PO Q4H PRN PRN Reason: Heartburn or Indigestion Atorvastatin Calcium (Lipitor) 20 mg PO HS [facility] Last Admin: 05/09/17 21:49 Dose: Not Given Bisacodyl (Dulcolax) 10 mg PO DAILYPRN PRN PRN Reason: Constipation Dextrose/Water (Dextrose 50%) 25 gm SLOW IVP PRN PRN PRN Reason: Hypoglycemia Famotidine (Pepcid) 20 mg SLOW IVP Q12HR [facility] Last Admin: 05/09/17 21:50 Dose: 20 mg Glucagon (Glucagon) 1 mg IM PRN PRN PRN Reason: Hypoglycemia Guaifenesin (Robitussin Sf) 200 mg PO Q4H PRN PRN Reason: Cough Hydralazine HCl (Apresoline) 10 mg SLOW IVP Q4H PRN PRN Reason: Systolic BP > 180 Dextrose/Water (D5w) 1,000 mls @ 0 mls/hr IV .Q0M PRN; As Directed PRN Reason: Hypoglycemia Ampicillin Sodium/Sulbactam Sodium 3 gm/ Syringe 1.6 ml/Sterile Water 8 mls @ 32 mls/hr SLOW IVP 0500,1100,1700,2300 [facility] Last Admin: 05/10/17 05:43 Dose: 8 mls Insulin Human Lispro (Humalog) 0 units SC .MILD SLIDING SCALE PRN PRN Reason: Mild Correctional Scale Loperamide HCl (Imodium) 2 mg PO PRN PRN PRN Reason: Diarrhea/Loose Stools Loratadine (Claritin) 10 mg PO DAILYPRN PRN PRN Reason: Sinus Symptoms Magnesium Hydroxide (Milk Of Magnesium) 30 ml PO DAILYPRN PRN PRN Reason: Constipation Metformin HCl (Glucophage) 500 mg PO QPM-WM [facility] Last Admin: 05/09/17 18:10 Dose: Not Given Mineral Oil/White Petrolatum (Eucerin Cream) 0 gm TOP BIDPRN PRN PRN Reason: Dry Skin Ondansetron HCl (Zofran Odt) 4 mg PO Q6H PRN PRN Reason: Nausea/Vomiting Ondansetron HCl (Zofran) 4 mg IVP Q6H PRN PRN Reason: Nausea/Vomiting Sodium Chloride ([place] 0.65%) 0 ml EA NARE QIDPRN PRN PRN Reason: Nasal Congestion Tramadol HCl (Ultram) 50 mg PO Q4H PRN PRN Reason: PAIN SCALE 1-5 Tramadol HCl (Ultram) 100 mg PO Q4H PRN PRN Reason: PAIN SCALE 6-10 Last Admin: 05/10/17 01:48 Dose: 100 mg Zolpidem Tartrate (Ambien) 5 mg PO HSPRN PRN PRN Reason: Insomnia
[2017-05-10 07:25] VITALS: BP 144/79
[2017-05-10] MEDS: Famotidine/PF 20 mg/2ml Vial SLOW IVP SCH (07:55)
--- NOTE | 2017-05-10 10:21 | DIS ---
DATE OF ADMISSION: 05/06/2017 DATE OF DISCHARGE: 05/10/2017 PRIMARY CARE PHYSICIAN: Dr. Meggan Loepz. DISCHARGE DISPOSITION: Home. PRIMARY DISCHARGE DIAGNOSES: 1. Acute choledocholithiasis, status post endoscopic retrograde cholangiopancreatography and sphincterotomy. 2. Status post laparoscopic cholecystectomy. 3. Nausea and vomiting, improved. 4. Abnormal liver function tests due to problem #1. 5. Dental infection. 6. Dilated bile duct due to problem #1. SECONDARY DISCHARGE DIAGNOSES: 1. Diabetes type 2. 2. Dyslipidemia. 3. Hypertension. 4. Obesity with BMI 33. PRIMARY PROCEDURE/OPERATION: ERCP and sphincterotomy was performed by Dr. Larose. Laparoscopic cholecystectomy was performed by Dr. Pena. RADIOLOGICAL INVESTIGATION: Abdominal ultrasound showed dilated bile duct, fatty liver. Abdomen MRI showed choledocholithiasis with common bile duct dilatation, bilateral renal cysts. SIGNIFICANT LABORATORY DATA: WBC 8.3, hemoglobin 11.7, platelets 147. Sodium 140, potassium 3.5, BUN 4, creatinine 0.69, AST 75, ALT 45, alkaline phosphatase 172. Lipase 222. DISCHARGE MEDICATIONS: Augmentin 875 mg twice daily for 5 days, aspirin 81 mg p.o. daily, metoprolol succinate with hydrochlorothiazide one tablet p.o. daily , Zocor 40 mg p.o. at bedtime, metformin 500 mg p.o. daily. CONTRAINDICATIONS: None. CODE STATUS: FULL CODE. INPATIENT CONSULTANTS: Dr. Rinaldi was consulted, Dr. Larose did ERCP, Dr. Pena did laparoscopic cholecystectomy. ALLERGIES: PLAVIX, CODEINE, GABAPENTIN, DILANTIN. DISCHARGE PLAN: Post hospital, the patient is advised to follow up with Dr. Rinaldi and Dr. Pena as instructed. The patient will make appointment with primary care physician in 1 week. HOSPITAL COURSE: A 71-year-old female with above-mentioned medical problem who was admitted by Dr. Laboy. Please see his H&P for further details. The patient was having epigastric abdominal pain, nausea, and vomiting. She had abdominal ultrasound, which showed dilated bile duct. Subsequently, we admitted this patient in hospital, she also had abnormal LFTs. Patient was also having dental infection and that is why she was given Unasyn antibiotic therapy while in hospital, she was given IV fluid. Dr. Rinaldi was consulted and he recommended to do MRI abdomen which was done and which was confirmed, which was showing choledocholithiasis. Subsequently, Dr. Larose did ERCP with sphincterotomy and duodenal diverticulum was diagnosed. Dr. Larose recommended to do laparoscopic cholecystectomy and that is why we consulted Dr. Pena. Dr. Pena did a laparoscopic cholecystectomy. Post-procedure, the patient is doing very well. The patient's pain is under control. The patient's lipase is elevated, which is related with her ERCP, but patient does not have any acute abdominal pain. The patient is seen and examined at bedside today. Please see my progress note from today for further details. If surgeon is okay, then we will consider discharging her home on the above-mentioned medications. Total time spent on discharge day more than 30 minutes. JESSICA
--- NOTE | 2017-05-11 12:48 | PRG ---
DATE OF SERVICE: 05/09/2017 SUBJECTIVE: Ms. Montelongo did well with her ERCP. She has no recurrent pain. PHYSICAL EXAMINATION: VITAL SIGNS: Temperature 98, pulse 77, blood pressure 176/81. ABDOMEN: Abdomen is nontender. ASSESSMENT: Status post ERCP for choledocholithiasis. PLAN: Laparoscopic cholecystectomy. If the patient does well, she can probably go home after that o r the next day. Will leave that decision to General Surgery.
--- NOTE | 2017-06-03 16:14 | EKG ---
Test Reason : Blood Pressure : / mmHG Vent. Rate : 076 BPM Atrial Rate : 076 BPM P-R Int : 146 ms QRS Dur : 070 ms QT Int : 404 ms P-R-T Axes : 027 -03 012 degrees QTc Int : 454 ms Normal sinus rhythm Normal ECG Confirmed by LAKESHA DOUGLAS, DR Bruno ([id number]), senior technical editor ERIK VALENTIN ([id number]) on 06/03/2017 4:13:53 PM Referred By: Confirmed By:RD CROWDER MD
== END 2017-05-10 11:33 | disposition home or self-care (01) | DRG 417 ==
LOC: ERS 16:44 → T4-B 19:26
PROVIDERS: ADMIT Internal Medicine; ATTEND Internal Medicine
PROC: 0F798ZZ Dilation of Common Bile Duct, Via Natural or Artificial Opening Endoscopic (ICD-10-PCS; 2017-05-08)
PROC: 0F788ZZ Dilation of Cystic Duct, Via Natural or Artificial Opening Endoscopic (ICD-10-PCS; 2017-05-08)
PROC: BF101ZZ Fluoroscopy of Bile Ducts using Low Osmolar Contrast (ICD-10-PCS; 2017-05-08)
PROC: 0FT44ZZ Resection of Gallbladder, Percutaneous Endoscopic Approach (ICD-10-PCS; principal; 2017-05-09)
DX: K80.50 Calculus of bile duct without cholangitis or cholecystitis without obstruction (principal); K85.10 Biliary acute pancreatitis without necrosis or infection; E11.9 Type 2 diabetes mellitus without complications; I10 Essential (primary) hypertension; E78.5 Hyperlipidemia, unspecified; Z88.5 Allergy status to narcotic agent; Z88.8 Allergy status to other drugs, medicaments and biological substances; Z79.84 Long term (current) use of oral hypoglycemic drugs; Z79.82 Long term (current) use of aspirin; K82.8 Other specified diseases of gallbladder; K04.7 Periapical abscess without sinus; E66.9 Obesity, unspecified; Z68.33 Body mass index [BMI] 33.0-33.9, adult; K57.10 Diverticulosis of small intestine without perforation or abscess without bleeding
CPT/HCPCS: 36415; 36416; 74181; 74330; 76705; 80048; 80053; 80076; 81003; 82553; 83690; 84484; 85025; 88304; 93005; 93010; 96361; 96374; A4216; J0295; J0360; J2001; J2060; J2405; J2704; J3010; Q9961; S0028

== ENCOUNTER 2018-09-03 10:12 | Outpatient (CLI) | payer MEDICARE ==
--- NOTE | 2018-10-05 09:05 | MMO ---
Bilateral MAMMO Bilat Screen [facility]. CLINICAL HISTORY: Patient is 72 years old and is seen for screening. The patient has the following family history of breast cancer: daughter, at age 40. The patient has no personal history of cancer. VIEWS: The views performed were: bilateral craniocaudal with tomosynthesis and bilateral mediolateral oblique with tomosynthesis. MAMMOGRAM FINDINGS: There are scattered fibroglandular densities. There are vascular calcifications seen in both breasts. There are no suspicious masses, suspicious calcifications, or new areas of architectural distortion. IMPRESSION: A ROUTINE FOLLOW-UP MAMMOGRAM IN 1 YEAR IS RECOMMENDED. THE RESULTS OF THIS EXAM WERE SENT TO THE PATIENT. ACR BI-RADS Category 2 - Benign finding MAMMOGRAPHY NOTE: 1. A negative mammogram report should not delay a biopsy if a dominant of clinically suspicious mass is present. 2. Approximately 10% to 15% of breast cancers are not detected by mammography. 3. Adenosis and dense breasts may obscure an underlying neoplasm.
== END 2018-09-03 10:13 | disposition home or self-care (01) ==
LOC: BICMAMMO 10:12
PROVIDERS: ATTEND Internal Medicine Geriatric Medicine
DX: Z12.31 Encounter for screening mammogram for malignant neoplasm of breast (principal)
CPT/HCPCS: 77063; 77067

== ENCOUNTER 2020-08-06 09:27 | Outpatient (CLI) | payer MEDICARE | END 2020-08-06 09:28 | disposition home or self-care (01) | LOC: BICMAMMO 09:27 | PROVIDERS: ATTEND Family Medicine | DX: Z12.31 Encounter for screening mammogram for malignant neoplasm of breast (principal); Z80.3 Family history of malignant neoplasm of breast | CPT/HCPCS: 77063; 77067 ==

== ENCOUNTER 2022-03-16 09:56 | Outpatient (CLI) | payer MEDICARE | END 2022-03-16 09:57 | disposition home or self-care (01) | LOC: BICMAMMO 09:56 | PROVIDERS: ATTEND Family Medicine | DX: Z12.31 Encounter for screening mammogram for malignant neoplasm of breast (principal); Z13.820 Encounter for screening for osteoporosis; N95.9 Unspecified menopausal and perimenopausal disorder; M81.0 Age-related osteoporosis without current pathological fracture; M85.851 Other specified disorders of bone density and structure, right thigh; Z80.3 Family history of malignant neoplasm of breast | CPT/HCPCS: 77063; 77067; 77080 ==

== ENCOUNTER 2022-10-03 07:34 | Outpatient (CLI) | payer MEDICARE ==
[2022-10-03] MEDS ORDERED: Iopamidol 370 76% 100 ML VIAL ONE (09:50)
== END 2022-10-03 07:35 | disposition home or self-care (01) ==
LOC: BICCT 07:34
PROVIDERS: ATTEND Family Medicine
DX: R41.3 Other amnesia (principal)
CPT/HCPCS: 70496; Q9967

== ENCOUNTER 2022-10-11 14:47 | Outpatient (CLI) | payer MEDICARE | END 2022-10-11 14:48 | disposition home or self-care (01) | LOC: SCSMRI 14:47 | PROVIDERS: ATTEND Family Medicine | DX: R41.3 Other amnesia (principal); I67.82 Cerebral ischemia; I67.1 Cerebral aneurysm, nonruptured | CPT/HCPCS: 70551 ==

== ENCOUNTER 2023-11-17 10:23 | Outpatient (CLI) | payer MEDICARE | END 2023-11-17 10:24 | disposition home or self-care (01) | LOC: BICMAMMO 10:23 | PROVIDERS: ATTEND Family Medicine | DX: Z12.31 Encounter for screening mammogram for malignant neoplasm of breast (principal); Z80.3 Family history of malignant neoplasm of breast | CPT/HCPCS: 77063; 77067 ==

== ENCOUNTER 2025-02-19 12:05 | Outpatient (CLI) | payer MEDICARE | END 2025-02-19 12:06 | disposition home or self-care (01) | LOC: RAD 12:05 | PROVIDERS: ATTEND Family Medicine | DX: M54.2 Cervicalgia (principal) | CPT/HCPCS: 72040 ==